=== PATIENT | female | born 1995 | race Caucasian/White ===

== ENCOUNTER 2017-04-29 18:15 | Emergency (ER) | payer OTHER ==
[2017-04-29 18:22] VITALS: BP 126/73; PULSE 84; TEMP 98.8; BMI 22.3
--- NOTE | 2017-04-29 18:47 | PDOC ---
History of Present Illness <Lorri Russell - Last Filed: 04/29/17 18:46> - General History Source: Patient Exam Limitations: No Limitations - History of Present Illness Initial Comments: 04/29/17 18:48 The patient is a 21 year old female, with a significant past medical history of ovarian cysts, who presents to the emergency department with abdominal pain, nausea and vaginal bleeding. She describes her abdominal pain as ranging from mild to moderate, without radiation. She notes that palpating her abdomen exacerbates the pain. She describes her vaginal bleeding as spotting. She denies any vaginal discharge. She states that she is not sure if she could be or not and notes that her last menstrual period was Mar 24 2017. She has not taken a test. The patient denies chest pain, shortness of breath, headache and dizziness. Denies fever, chills, nausea, vomit, diarrhea and constipation. Denies dysuria, frequency, urgency and hematuria. Allergies: None Past surgical history: None reported Social history: Cigarette use (2 daily). No alcohol or drug use reported <Dominik Khan - Last Filed: 04/29/17 19:18> - General Chief Complaint: Pain Stated Complaint: ABD CRAMPING, VAGINAL SPOTTING Time Seen by Provider: 04/29/17 18:43 Past History - Past Medical History Thyroid Disease: Yes Other medical history: HEART MURMUR - Reproductive History Is Patient Now?: No - Psycho/Social/Smoking Cessation Hx Anxiety: No Suicidal Ideation: No Smoking History: Current every day smoker Have you smoked in the past 12 months: Yes Number of Cigarettes Smoked Daily: 2 Information on smoking cessation initiated: Yes 'Breaking Loose' booklet given: 04/29/17 Hx Alcohol Use: No <Lorri Russell - Last Filed: 04/29/17 18:46> <Dominik Khan - Last Filed: 04/29/17 19:18> - Past Medical History Allergies/Adverse Reactions: Allergies Allergy/AdvReac Type Severity Reaction Status Date / Time No Known Allergies Allergy Verified 04/29/17 18:17 Home Medications: Ambulatory Orders Methimazole 10 mg PO BID 04/29/17 Norgestimate-Ethinyl Estradiol [Tri-Sprintec Tablet] 1 each PO ASDIR 04/29/17 Review of Systems - Review of Systems Able to Perform ROS?: Yes Comments:: 04/29/17 18:49 GENERAL/CONSTITUTIONAL: No fever or chills. No weakness. HEAD, EYES, EARS, NOSE AND THROAT: No change in vision. No ear pain or discharge. No sore throat. CARDIOVASCULAR: No chest pain or shortness of breath RESPIRATORY: No cough, wheezing, or hemoptysis. GASTROINTESTINAL: (+) Abdominal pain, nausea. No vomiting, diarrhea or constipation. GENITOURINARY: (+) Vaginal spotting. No dysuria, frequency, or change in urination. MUSCULOSKELETAL: No joint or muscle swelling or pain. No neck or back pain. SKIN: No rash NEUROLOGIC: No headache, vertigo, loss of consciousness, or change in strength/ sensation. ENDOCRINE: No increased thirst. No abnormal weight change HEMATOLOGIC/LYMPHATIC: No anemia, easy bleeding, or history of blood clots. ALLERGIC/IMMUNOLOGIC: No hives or skin allergy. <Dominik Khan - Last Filed: 04/29/17 19:18> *Physical Exam - Vital Signs Last Vital Signs Temp Pulse Resp BP Pulse Ox 98.8 F 84 18 126/73 99 04/29/17 18:15 04/29/17 18:15 04/29/17 18:15 04/29/17 18:15 04/29/17 18:15 <Lorri Russell - Last Filed: 04/29/17 18:46> - Vital Signs Last Vital Signs Temp Pulse Resp BP Pulse Ox 98.8 F 84 18 126/73 99 04/29/17 18:15 04/29/17 18:15 04/29/17 18:15 04/29/17 18:15 04/29/17 18:15 - Physical Exam Comments: 04/29/17 18:49 GENERAL: Awake, alert, and fully oriented, in no acute distress HEAD: No signs of trauma, normocephalic, atraumatic EYES: PERRLA, EOMI, sclera anicteric, conjunctiva clear ENT: Auricles normal inspection, hearing grossly normal, nares patent, oropharynx clear without exudates. Moist mucosa NECK: Normal ROM, supple, no lymphadenopathy, JVD, or masses LUNGS: No distress, speaks full sentences, clear to auscultation bilaterally HEART: Regular rate and rhythm, normal S1 and S2, no murmurs, rubs or gallops, peripheral pulses normal and equal bilaterally. ABDOMEN: (+) Left lower quadrant tenderness and suprapubic tenderness. Soft, normoactive bowel sounds. No guarding, no rebound. No masses EXTREMITIES: Normal inspection, Normal range of motion, no edema. No clubbing or cyanosis. NEUROLOGICAL: Cranial nerves II through XII grossly intact. Normal speech, normal gait, no focal sensorimotor deficits SKIN: Warm, Dry, normal turgor, no rashes or lesions noted. PELVIC EXAM: (+) Mild CMT, no discharge, blood in vault. No adnexal tenderness. <Dominik Khan - Last Filed: 04/29/17 19:18> ED Treatment Course - RADIOLOGY Radiology Studies Ordered: Category Date Time Status TRANSVAGINAL ULTRASOUND US [US] Stat Ultrasound 04/29/17 18:45 Ordered <Lorri Russell - Last Filed: 04/29/17 18:46> Medical Decision Making - Medical Decision Making 04/29/17 18:46 21 yo F with h/o ovarian cyst here wtih /co llq pain , suprapubic pain. crampy , intermittent, started few days ago. LMP 03/24/17, has been spotting last few days. no vaginal discharge. no urinary complaints. not sure if . on exam awake alert . lungs normal heart RRR no mr/g. abd soft LLQ ttp, no rebound no guarding. skin warm and dry. plan: diffferential: torsion. ruptured or hemorrhage ovarian cyst. pid, , ectopic pms. plan tvus, labs hcg ua pain. <Lorri Russell - Last Filed: 04/29/17 18:46> *DC/Admit/Observation/Transfer <Lorri Russell - Last Filed: 04/29/17 18:46> - Attestations Scribe Attestion: 04/29/17 18:50 Documentation prepared by Dominik Khan, acting as medical appointment scheduler for Lorri Russell MD <Dominik Khan - Last Filed: 04/29/17 19:18> - Discharge Dispostion Condition at time of disposition: Stable
[2017-04-29 18:52] LABS: URINE APPEARANCE Clear; URINE BILIRUBIN Negative (NEGATIVE); URINE GLUCOSE (UA) Negative (NEGATIVE); URINE KETONE Negative (NEGATIVE); URINE LEUK ESTERASE Negative (NEGATIVE); URINE NITRITE Negative (NEGATIVE); URINE PROTEIN Negative (NEGATIVE); URINE UROBILINOGEN 0.2 E.U/dl (0.2-1.0)
[2017-04-29 19:15] LABS: URINE BLOOD 2+ (NEGATIVE); URINE COLOR YELLOW
[2017-04-29 19:41] LABS: BASOPHIL 1.9 % (0-2.0); EOSINOPHIL 1.4 % (0-4.5); MCH 32.9 pg (25.7-33.7); MCHC 35.2 g/dl (32.0-36.0); MEAN CELL VOLUME 93.7 fl (80-96); MEAN PLT VOLUME 8.3 fl (7.5-11.1); NEUTROPHILS 63.9 % (42.8-82.8); PLATELET COUNT 181 K/MM3 (134-434); RDW 11.4 % (11.6-15.6); WHITE BLOOD COUNT 6.7 K/mm3 (4.0-10.8)
[2017-04-29 19:49] LABS: ALBUMIN 3.9 g/dl (3.5-5.0); ALK PHOS 40 U/L (32-92); ANION GAP 7 (8-16); BILIRUBIN,TOTAL 0.6 mg/dl (0.2-1.0); CALCIUM 9.1 mg/dl (8.4-10.2); CO2 26 mmol/L (22-28); CREATININE 0.8 mg/dl (0.6-1.3); GLUCOSE,RANDOM 82 mg/dl (74-106); SGOT/AST 16 U/L (10-42); SGPT/ALT 16 U/L (10-40); TOT PROT 7.2 g/dl (6.4-8.3)
[2017-04-29 19:58] LABS: COCKROFT - GAULT NT
--- NOTE | 2017-04-29 21:08 | PDOC ---
*Physical Exam - Vital Signs Last Vital Signs Temp Pulse Resp BP Pulse Ox 98.8 F 84 18 126/73 99 04/29/17 18:15 04/29/17 18:15 04/29/17 18:15 04/29/17 18:15 04/29/17 18:15 ED Treatment Course - LABORATORY CBC & Chemistry Diagram: 04/29/17 19:00 04/29/17 19:00 - ADDITIONAL ORDERS Additional order review: Laboratory Results 04/29/17 04/29/17 04/29/17 19:00 19:00 19:00 Sodium 139 Potassium 3.5 Chloride 106 Carbon Dioxide 26 Anion Gap 7 L BUN 9 Creatinine 0.8 Creat Clearance w eGFR > 60 Random Glucose 82 Calcium 9.1 Total Bilirubin 0.6 AST 16 ALT 16 Alkaline Phosphatase 40 Total Protein 7.2 Albumin 3.9 Beta HCG, Quant < 1.0 Urine Color Urine Appearance Urine pH Ur Specific [place] Urine Protein Urine Glucose (UA) Urine Ketones Urine Blood Urine Nitrite Urine Bilirubin Urine Urobilinogen Ur Leukocyte Esterase Urine HCG, Qual Blood Type A NEGATIVE A NEGATIVE Antibody Screen Negative 04/29/17 18:35 Sodium Potassium Chloride Carbon Dioxide Anion Gap BUN Creatinine Creat Clearance w eGFR Random Glucose Calcium Total Bilirubin AST ALT Alkaline Phosphatase Total Protein Albumin Beta HCG, Quant Urine Color Yellow Urine Appearance Clear Urine pH 6.0 Ur Specific [place] 1.015 Urine Protein Negative Urine Glucose (UA) Negative Urine Ketones Negative Urine Blood 2+ H Urine Nitrite Negative Urine Bilirubin Negative Urine Urobilinogen 0.2 e.u/dl Ur Leukocyte Esterase Negative Urine HCG, Qual Negative Blood Type Antibody Screen 04/29/17 19:00 RBC 4.13 MCV 93.7 MCHC 35.2 RDW 11.4 L MPV 8.3 Neutrophils % 63.9 Lymphocytes % 25.0 Monocytes % 7.8 Eosinophils % 1.4 Basophils % 1.9 Progress Note - Progress Note Progress Note: Care of this patient received from Dr. Russell Medical Decision Making - Medical Decision Making Ultrasound reveals free fluid without pathology of the ovaries or fallopian tubes. There is no evidence of torsion of the ovaries with normal blood flow bilaterally demonstrated on ultrasound. Results discussed with the patient. 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 Meanwhile, she will take anti-inflammatory medications as needed for pain. She should return to the emergency room if she has severe, persistent pain. *DC/Admit/Observation/Transfer Diagnosis at time of Disposition: Ruptured ovarian cyst - Discharge Dispostion Disposition: HOME Condition at time of disposition: Stable - Patient Instructions Printed Discharge Instructions: DI for Ovarian Cyst Additional Instructions: Ibuprofen/naproxen/acetaminophen as needed for pain Return here if you have persistent, severe pain or fever/vomiting Follow-up with your printing and stamping supervisor within the next week
[2017-04-29 21:19] LABS: URINE BACTERIA 1+ /hpf (NEGATIVE); URINE MUCUS 1+; URINE WBC 0-3 (3-5)
== END 2017-04-29 21:14 | disposition home or self-care (01) ==
LOC: FER 18:15
DX: N83.209 Unspecified ovarian cyst, unspecified side (principal); R01.1 Cardiac murmur, unspecified; E07.9 Disorder of thyroid, unspecified; F17.210 Nicotine dependence, cigarettes, uncomplicated
CPT/HCPCS: 36415; 76830-TC; 80053; 81003; 81015; 84702; 84703; 85025; 86850; 86900; 86901; 99283-25